=== PATIENT | male | born 1985 ===

== ENCOUNTER 2018-10-01 19:45 | Emergency (ER) | payer SELFPAY ==
[2018-10-01 19:55] VITALS: BP 136/87; PULSE 94; RESP 16; TEMP 98.5; O2SAT 100
--- NOTE | 2018-10-01 21:44 | C.PDOC ---
History Of Present Illness 33 y/o male c/o 'allergic reaction' to his legs intermittently for 3 months as well as redness to both thighs when they get warm. pt sts another person in his home with similar symptoms, and states itching worse at night. denies fever. 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) Onset/Duration Of Symptoms: Days (90), Intermittent Episodes Location Of Injury: Right: Leg, Left: Leg Quality Of Symptoms: Itching Past Medical History Reviewed: Historical Data, Nursing Documentation, Vital Signs Vital Signs: Last Vital Signs Temp 98.5 F 10/01/18 19:52 Pulse 94 H 10/01/18 19:52 Resp 16 10/01/18 19:52 BP 136/87 10/01/18 19:52 Pulse Ox 100 10/01/18 19:52 - Medical History PMH: No Chronic Diseases Family History: States: Unknown Family Hx - Social History Hx Alcohol Use: Yes Hx Substance Use: No Review Of Systems Constitutional: Negative for: Fever, Chills Cardiovascular: Negative for: Chest Pain Gastrointestinal: Negative for: Nausea, Vomiting, Abdominal Pain Skin: Positive for: Rash. Negative for: Jaundice, Bruising Neurological: Negative for: Weakness, Numbness Physical Exam - Physical Exam Appears: Non-toxic, No Acute Distress Skin: Warm, Dry, Other (mu;ltipke ingrown appearing hairs, to bilateral thighs, burrows in interdigital spaces on both hands. ) Head: Atraumatic, Normacephalic Extremity: Normal ROM, No Tenderness, No Swelling Neurological/Psych: Oriented x3, Normal Speech, Normal Cognition ED Course And Treatment O2 Sat by Pulse Oximetry: 100 Medical Decision Making Medical Decision Making: pt with what appears to be folliculits to bilateral thighs, also with burrows on hands. pt advised to use permethrin and wash all bedding. as well as use a mesh scrubby to bath with. Disposition Counseled Patient/Family Regarding: Diagnosis, Need For Followup, Rx Given - Disposition Referrals: [facility] [Outside] Disposition: HOME/ ROUTINE Disposition Time: 21:54 Condition: GOOD Additional Instructions: Aplique permetrina en el cuerpo del entor y deje actuar chino 8 a 12 horas, luego enjuague y pngase ropa limpia. Lave toda la ropa de cama y las toallas con chemehuevi y colquelas en la secadora. An puede tener picazn por un mes despus del tratamiento. Use un exfoliante de mell suave con jabn lquido suave para anneliese el cuerpo y frote suavemente la piel a diario. Seguimiento en clnica emdical. Regrese a la cynthia de emergencias para cualquier sntoma peor. Apply permetrhin to entor body and leave on for 8-12 hours, then wash off and put on clean clothes. Wash all bedding and towels in hot water and put in dryer. You may still be itchy for u amonth after treatment. Use a soft mesh scrubby with gently liquid soap to wash body and lightly scrub skin daily. Follow up in emdical clinic. Return to ER for any worse symptms. Prescriptions: Permethrin 5% [Permethrin 5% Cream] 1 applic TOP ONCE #1 tube Instructions: Scabies (DC) Forms: Gen Discharge Inst [facility], [facility] ([facility]) - Clinical Impression Clinical Impression: Scabies
== END 2018-10-01 22:19 | disposition home or self-care (01) ==
LOC: C.ER 19:45
DX: B86 Scabies (principal)